=== PATIENT | female | born 1995 | race American Indian/Alaskan Native ===

== ENCOUNTER 2017-07-07 13:48 | Emergency (ER) | payer MEDICAID, OTHER ==
[2017-07-07 14:40] VITALS: BP 112/74
--- NOTE | 2017-07-07 18:08 | Emergency Department Report ---
ED Rash HPI - HPI Chief Complaint: Skin Rash Stated Complaint: RASH Time Seen by Provider: 07/07/17 17:52 Duration: 2 Days Location: Head, Neck, Chest, Back, Abdomen, Upper Extremities, Lower Extremities Suspected Cause: Medication Rash Symptoms: Yes Itching, No Facial Swelling, No Tongue/Oral Swelling, No Breathing Difficulties, No Choking Sensation, No Wheezing/Dyspnea, No Peeling, No Blistering, No Fever, No Lightheaded, No Malaise Severity: mild Other History: 22-year-old female no past medical history presents with complaint of itchy rash to the nape of her neck forearms legs abdomen and back. States it is itchy with slightly raised red bumps lines. Denies fever or chills denies nausea or vomiting denies any recent travel. Denies using any new cosmetics soaps or lotions denies having any new pets. Denies any food allergies. Patient states that she has not taken any medicine for the itching ED Review of Systems ROS: Stated complaint: RASH Other details as noted in HPI Constitutional: denies: chills, fever Eyes: denies: eye pain, eye discharge, vision change ENT: denies: ear pain, throat pain Respiratory: denies: cough, shortness of breath, wheezing Cardiovascular: denies: chest pain, palpitations Endocrine: no symptoms reported Gastrointestinal: denies: abdominal pain, nausea, diarrhea Genitourinary: denies: urgency, dysuria, discharge Musculoskeletal: denies: back pain, joint swelling, arthralgia Skin: as per HPI, rash. denies: lesions Neurological: denies: headache, weakness, paresthesias Psychiatric: denies: anxiety, depression Hematological/Lymphatic: denies: easy bleeding, easy bruising ED Past Medical Hx - Past Medical History Previous Medical History?: No - Social History Smoking Status: Current Every Day Smoker Substance Use Type: Marijuana - Medications Home Medications: Home Medications Medication Instructions Recorded Confirmed Last Taken Type Loratadine [Claritin] 10 mg PO DAILY #30 tablet 01/10/16 Unknown Rx Prednisone [predniSONE 5 mg (6-Day 5 mg PO .TAPER #1 tab.ds.pk 01/10/16 Unknown Rx Pack, 21 Tabs)] hydrOXYzine HCL [Atarax] 25 mg PO Q6HR PRN #30 tablet 01/10/16 Unknown Rx Clotrimazole 1% [Lotrimin 1%] 1 applicatio TP BID #1 tube 07/07/17 Unknown Rx Hydrocortisone 1% [Hydrocortisone 1 applicatio TP TID PRN #1 tube 07/07/17 Unknown Rx 1% CREAM] Hydroxyzine HCl 25 mg PO Q8H PRN #20 tablet 07/07/17 Unknown Rx Permethrin 5% [Acticin 5% CREAM] 1 applicatio TP ONCE #1 tube 07/07/17 Unknown Rx Rash Exam - Exam General: Vital signs noted. No distress. Alert and acting appropriately. HEENT: No Periorbital Edema, No Conjuctival Injection, No Chemosis, No Perioral Edema, No Tongue Edema, No Uvular Edema, No Compromised Airway, No Drooling Lungs: Yes Good Air Exchange (Normal Breath Sounds), No Wheezes, No Ronchi, No Stridor, No Cough, No Labored Respirations, No Retractions, No Use of Accessory Muscles, No Other Abnormal Lung Sounds Heart: Yes Regular, No Murmur Skin: Yes Maculopapular Rash (raised dry scaly plaques on back however there are what appear to be burrows and linear excoriations on extremities), Yes Excoriations (patient has some excoriations on the posterior nape of neck and on abdomen where she has been scratching) Other: Positive: Abdomen Normal, Neurologic Normal, Musculoskeletal Normal ED Course Vital Signs 07/07/17 14:36 Temperature 97.9 F Pulse Rate 89 Respiratory 16 Rate Blood Pressure 112/74 O2 Sat by Pulse 98 Oximetry ED Medical Decision Making - Medical Decision Making A/P: Scabies, tinea corporis 1-raised plaques on back and abdomen suggestive of tinea corporis will treat empirically with clotrimazole 2-excoriations and linear fashion along nape of neck creases of the elbows and knees suggestive of possible scabies infection will treat empirically with permethrin 3-primary care and dermatology 4- she has no signs of systemic illness no fever no chills no nausea no vomiting not in acute distress other than complaining of itching Critical care attestation.: If time is entered above; I have spent that time in minutes in the direct care of this critically ill patient, excluding procedure time. ED Disposition Clinical Impression: Scabies, Tinea corporis Disposition: DC-01 TO HOME OR SELFCARE Is pt being admited?: No Does the pt Need Aspirin: No Condition: Stable Instructions: Tinea Corporis (ED), Scabies (ED) Prescriptions: Clotrimazole 1% [Lotrimin 1%] 1 applicatio TP BID #1 tube Hydrocortisone 1% [Hydrocortisone 1% CREAM] 1 applicatio TP TID PRN #1 tube PRN Reason: Itching Hydroxyzine HCl 25 mg PO Q8H PRN #20 tablet PRN Reason: Itching Permethrin 5% [Acticin 5% CREAM] 1 applicatio TP ONCE #1 tube Referrals: [facility] [Provider Group] - 3-5 Days [facility] [Outside] - 3-5 Days Forms: Work/School Release Form(ED)
== END 2017-07-07 18:32 | disposition home or self-care (01) ==
LOC: ED 13:48
DX: B86 Scabies (principal); B35.4 Tinea corporis; F17.210 Nicotine dependence, cigarettes, uncomplicated; F12.10 Cannabis abuse, uncomplicated
CPT/HCPCS: 99282

== ENCOUNTER 2019-11-21 11:44 | Emergency (ER) | payer SELFPAY ==
--- NOTE | 2019-11-21 12:02 | Event Note ---
ED Screening Note ED Screening Note: states she has had productive cough for three weeks brown sputum fever decreased appetite no vomiting, no diarrhea +sob PMHx none no allergies to meds no hx of asthma +marijuana non drinker LNMP: 11/16/19 This initial assessment/diagnostic orders/clinical plan/treatment(s) is/are subject to change based on patients health status, clinical progression and re- assessment by fellow clinical providers in the ED. Further treatment and workup at subsequent clinical providers discretion. Patient/guardian urged not to elope from the ED as their condition may be serious if not clinically assessed and managed. Initial orders include: CXR consent for XR on chart
[2019-11-21 12:03] VITALS: BP 126/99
--- NOTE | 2019-11-21 13:35 | XRay Report ---
CHEST 2 VIEWS INDICATION / CLINICAL INFORMATION: productive cough. COMPARISON: None available. FINDINGS: SUPPORT DEVICES: None. HEART / MEDIASTINUM: No significant abnormality. LUNGS / PLEURA: No significant pulmonary or pleural abnormality. No pneumothorax. ADDITIONAL FINDINGS: Bilateral nipple piercings are present. IMPRESSION: 1. No acute findings. Signer Name: Spencer Steve MD Signed: 11/21/2019 1:31 PM Workstation Name: [id number]
--- NOTE | 2019-11-21 14:16 | Emergency Department Report ---
ED General Adult HPI - General Chief complaint: Upper Respiratory Infection Stated complaint: FLU SX Time Seen by Provider: 11/21/19 12:00 Source: patient Mode of arrival: Ambulatory Limitations: No Limitations - History of Present Illness Initial comments: Patient presents to the emergency department with a chief complaint of a cough 2 weeks. Patient states the cough is productive in nature and states she's also had a fever as well. Patient saw sure of any sick contacts. Severity scale (0 -10): 2 - Related Data Previous Rx's Medication Instructions Recorded Last Taken Type Loratadine (Nf) [Claritin] 10 mg PO DAILY #30 tablet 01/10/16 Unknown Rx Prednisone [predniSONE 5 mg (6-Day 5 mg PO .TAPER #1 tab.ds.pk 01/10/16 Unknown Rx Pack, 21 Tabs)] hydrOXYzine HCL [Atarax] 25 mg PO Q6HR PRN #30 tablet 01/10/16 Unknown Rx Clotrimazole 1% [Lotrimin 1%] 1 applicatio TP BID #1 tube 07/07/17 Unknown Rx Hydrocortisone 1% [Hydrocortisone 1 applicatio TP TID PRN #1 tube 07/07/17 Unknown Rx 1% CREAM] Permethrin 5% [Acticin 5% CREAM] 1 applicatio TP ONCE #1 tube 07/07/17 Unknown Rx hydrOXYzine HCL [Hydroxyzine HCl] 25 mg PO Q8H PRN #20 tablet 07/07/17 Unknown Rx ALBUTEROL Inhaler (OR & NICU) 2 puff IH Q4HR PRN #1 inhalation 11/21/19 Unknown Rx [ProAir HFA Inhaler] Benzonatate [Tessalon Perles] 100 mg PO Q8HR PRN #20 capsule 11/21/19 Unknown Rx guaiFENesin/CODEINE [Robitussin AC] 5 ml PO Q12HR PRN #180 oral.liqd 11/21/19 Unknown Rx predniSONE [Deltasone] 20 mg PO DAILY #15 tablet 11/21/19 Unknown Rx Allergies Allergy/AdvReac Type Severity Reaction Status Date / Time No Known Allergies Allergy Unverified 01/10/16 14:32 ED Review of Systems ROS: Stated complaint: FLU SX Other details as noted in HPI Constitutional: denies: chills, fever Eyes: denies: eye pain, eye discharge, vision change ENT: denies: ear pain, throat pain Respiratory: cough. denies: shortness of breath, wheezing Cardiovascular: denies: chest pain, palpitations Endocrine: no symptoms reported Gastrointestinal: denies: abdominal pain, nausea, diarrhea Genitourinary: denies: urgency, dysuria, discharge Musculoskeletal: denies: back pain, joint swelling, arthralgia Skin: denies: rash, lesions Neurological: denies: headache, weakness, paresthesias Psychiatric: denies: anxiety, depression Hematological/Lymphatic: denies: easy bleeding, easy bruising ED Past Medical Hx - Past Medical History Previous Medical History?: No - Surgical History Past Surgical History?: No - Social History Smoking Status: Current Some Day Smoker Substance Use Type: Marijuana - Medications Home Medications: Home Medications Medication Instructions Recorded Confirmed Last Taken Type Loratadine (Nf) [Claritin] 10 mg PO DAILY #30 tablet 01/10/16 Unknown Rx Prednisone [predniSONE 5 mg (6-Day 5 mg PO .TAPER #1 tab.ds.pk 01/10/16 Unknown Rx Pack, 21 Tabs)] hydrOXYzine HCL [Atarax] 25 mg PO Q6HR PRN #30 tablet 01/10/16 Unknown Rx Clotrimazole 1% [Lotrimin 1%] 1 applicatio TP BID #1 tube 07/07/17 Unknown Rx Hydrocortisone 1% [Hydrocortisone 1 applicatio TP TID PRN #1 tube 07/07/17 Unknown Rx 1% CREAM] Permethrin 5% [Acticin 5% CREAM] 1 applicatio TP ONCE #1 tube 07/07/17 Unknown Rx hydrOXYzine HCL [Hydroxyzine HCl] 25 mg PO Q8H PRN #20 tablet 07/07/17 Unknown Rx ALBUTEROL Inhaler (OR & NICU) 2 puff IH Q4HR PRN #1 inhalation 11/21/19 Unknown Rx [ProAir HFA Inhaler] Benzonatate [Tessalon Perles] 100 mg PO Q8HR PRN #20 capsule 11/21/19 Unknown Rx guaiFENesin/CODEINE [Robitussin AC] 5 ml PO Q12HR PRN #180 oral.liqd 11/21/19 Unknown Rx predniSONE [Deltasone] 20 mg PO DAILY #15 tablet 11/21/19 Unknown Rx ED Physical Exam - General Limitations: No Limitations General appearance: alert, in no apparent distress - Head Head exam: Present: atraumatic, normocephalic - Eye Eye exam: Present: normal appearance, PERRL, EOMI - ENT ENT exam: Present: mucous membranes moist - Neck Neck exam: Present: normal inspection - Respiratory Respiratory exam: Present: wheezes. Absent: respiratory distress - Cardiovascular Cardiovascular Exam: Present: regular rate, normal rhythm. Absent: systolic murmur, diastolic murmur, rubs, gallop - GI/Abdominal GI/Abdominal exam: Present: soft, normal bowel sounds. Absent: distended, tenderness - Extremities Exam Extremities exam: Present: normal inspection - Back Exam Back exam: Present: normal inspection - Neurological Exam Neurological exam: Present: alert, oriented X3, CN II-XII intact. Absent: motor sensory deficit - Psychiatric Psychiatric exam: Present: normal affect, normal mood - Skin Skin exam: Present: warm, dry, intact, normal color. Absent: rash ED Course Vital Signs 11/21/19 12:00 Temperature 98.6 F Pulse Rate 111 H Respiratory 16 Rate Blood Pressure 126/99 Blood Pressure 126/99 [Right] O2 Sat by Pulse 99 Oximetry ED Medical Decision Making - Radiology Data Radiology results: report reviewed - Medical Decision Making Patient advised to stop smoking marijuana Plan of care discussed with patient Critical care attestation.: If time is entered above; I have spent that time in minutes in the direct care of this critically ill patient, excluding procedure time. ED Disposition Clinical Impression: Bronchitis Disposition: DC-01 TO HOME OR SELFCARE Is pt being admited?: No Does the pt Need Aspirin: No Condition: Stable Instructions: Acute Bronchitis (ED) Additional Instructions: return if worse Referrals: [facility] [Provider Group] - 3-5 Days [facility] [Provider Group] - 3-5 Days Time of Disposition: 14:15
== END 2019-11-21 15:04 | disposition home or self-care (01) ==
LOC: ED 11:44
DX: J40 Bronchitis, not specified as acute or chronic (principal)
CPT/HCPCS: 71046; 99283

== ENCOUNTER 2020-10-31 17:02 | Emergency (ER) | payer SELFPAY ==
[2020-10-31 17:19] VITALS: BP 100/83
--- NOTE | 2020-10-31 17:48 | Emergency Department Report ---
Chief Complaint: Skin Rash Stated Complaint: RASH ALL OVER/ECZEMA Time Seen by Provider: 10/31/20 17:44 - HPI History of Present Illness: Patient is a 25-year-old female presents emergency room complaints of a diffuse rash that began 2 months ago. She states that occasionally she does have itching. She states that she has been using Aveeno and turmeric Carmichael butter [id number]. She does not have a primary care physician and has not seen anyone for this. She denies any known allergies at all. She denies any fever, vomiting, diarrhea, chills, facial swelling, difficulty swallowing, difficulty breathing. No past medical history. No allergies to medications. Currently on her menstrual cycle. Vitals are normal On exam: Non toxic appearing, no acute distress atraumatic, normocephalic normal appearance of the eyes, PERRL, EOMI, no periorbital edema or ecchymosis moist mucus membranes, no angioedema No respiratory distress, no accessory muscle use A&O x4, no focal neuro deficit skin is warm, dry, several small areas of hypopigmentation, there are also several areas diffusely of small erythematous macules with scaling around the border, no blistering, no skin denuding, no necrosis Examination appears most consistent with tinea corporis/tinea versicolor Advised patient to use Lotrimin [id number] Patient will be given a primary care doctor to follow-up with for further evaluation Discussed strict return precautions with patient Medical screen examination performed there is no threat to life or limb at this time - Exam Vital Signs: Vital Signs 10/31/20 17:18 Temperature 98.3 F Pulse Rate 64 Respiratory 20 Rate Blood Pressure 100/83 [Right] O2 Sat by Pulse 96 Oximetry MSE screening note: Focused history and physical exam performed. Due to findings the following was ordered: ED Disposition for MSE Clinical Impression: Tinea corporis Disposition: Z- MED SCREENING EXAM-LEFT Is pt being admited?: No Does the pt Need Aspirin: No Condition: Stable Instructions: Body Ringworm, Tinea Versicolor Additional Instructions: Please use Lotrimin [id number]. May also wash your body with a antifungal shampoo or Selsun Blue. Follow-up with a primary care doctor for reexamination and to see if you need further treatment. Return to emergency room for any new or worsening symptoms. walk in clinic: [facility] Address: [address] [place] [address], [place] [address] Referrals: TO SPARROW MD [Staff Physician] - 2-3 Days [facility] [Provider Group] - 2-3 Days [facility], [LAB/CONTRACT] - 2-3 Days Time of Disposition: 17:47 Print Language: [place]
== END 2020-10-31 17:58 | disposition left against medical advice (07) ==
LOC: ED 17:02
DX: R21 Rash and other nonspecific skin eruption (principal); Z53.21 Procedure and treatment not carried out due to patient leaving prior to being seen by health care provider

== ENCOUNTER 2021-06-30 16:15 | Emergency (ER) | payer SELFPAY ==
[2021-06-30 16:23] VITALS: BP 134/51
--- NOTE | 2021-06-30 18:49 | Emergency Department Report ---
ED Rash HPI - HPI Chief Complaint: Skin Rash Stated Complaint: RASH CORNERS OF MOUTH Time Seen by Provider: 06/30/21 18:42 Duration: 1 mth Rash Symptoms: Yes Itching, No Facial Swelling, No Tongue/Oral Swelling, No Breathing Difficulties, No Choking Sensation, No Wheezing/Dyspnea, No Peeling, No Blistering, No Fever, No Lightheaded, No Malaise, No Myalgias Severity: mild Other History: 26-year-old female presents to the ER today complaining of a rash to each corner of her mouth. Patient states that it started off small about a month ago and has since gotten a little bit bigger. She states that is very irritating and can also be itchy, dry and flaky. She has no known history of eczema, and thought it was related to eczema and so she has been using hydrocortisone cream but she states that it makes it worse. She denies any new lipsticks, facial products, foods, or any other new contacts. She denies any associated facial tongue or throat or lip swelling, she denies any coughing, chest pain, shortness of breath or wheezing. ED Review of Systems ROS: Stated complaint: RASH CORNERS OF MOUTH Other details as noted in HPI Comment: All other systems reviewed and negative Constitutional: denies: chills, fever Eyes: denies: eye pain, eye discharge, vision change ENT: denies: ear pain, throat pain, dental pain, hearing loss, epistaxis, congestion Respiratory: denies: cough, shortness of breath, SOB with exertion, SOB at rest, wheezing Gastrointestinal: denies: abdominal pain, nausea, diarrhea, constipation, hematemesis, hematochezia Genitourinary: denies: urgency, dysuria, discharge Skin: rash, pruritus. denies: lesions, change in color, change in hair/nails Neurological: denies: headache, weakness, numbness, paresthesias, confusion, abnormal gait, vertigo Psychiatric: denies: anxiety, depression, auditory hallucinations, visual hallucinations, homicidal thoughts, suicidal thoughts ED Past Medical Hx - Past Medical History Previous Medical History?: No - Surgical History Past Surgical History?: No - Social History Smoking Status: Never Smoker Substance Use Type: None - Medications Home Medications: Home Medications Medication Instructions Recorded Confirmed Last Taken Type Albuterol Mdi (or & Nicu Only) 2 puff IH Q4HR PRN #1 inhalation 11/21/19 Unknown Rx [ProAir HFA Inhaler] Nystatin Cream [Mycostatin Cream] 1 applic TP TID #30 gram 06/30/21 Unknown Rx Rash Exam - Exam General: Vital signs noted. No distress. Alert and acting appropriately. HEENT: No Periorbital Edema, No Conjuctival Injection, No Chemosis, No Perioral Edema, No Tongue Edema, No Uvular Edema, No Compromised Airway, No Drooling Lungs: Yes Good Air Exchange, No Wheezes, No Ronchi, No Stridor, No Cough, No Labored Respirations, No Retractions, No Use of Accessory Muscles, No Other Abnormal Lung Sounds Heart: Yes Regular, No Murmur Skin: Yes Maculopapular Rash (Mild, hyperpigmented, maculopapular rash slightly well-demarcated noted corner left and right aspects of the mouth), No Urticarial Rash, No Morbilliform rash, No Bulla(e), No Excoriations, No Weeping, No Tend erness, No Erythema, No Edema, No Encrustations Other: Positive: Abdomen Normal, Neurologic Normal, Musculoskeletal Normal ED Course Vital Signs 06/30/21 16:22 Temperature 98.9 F Pulse Rate 79 Respiratory 20 Rate Blood Pressure 134/51 [Right] O2 Sat by Pulse 98 Oximetry Critical care attestation.: If time is entered above; I have spent that time in minutes in the direct care of this critically ill patient, excluding procedure time. ED Disposition Clinical Impression: Angular cheilitis Disposition: TO HOME OR SELFCARE Is pt being admited?: No Does the pt Need Aspirin: No Condition: Stable Instructions: Skin Yeast Infection Additional Instructions: Use the nystatin cream as prescribed. Follow-up with a sheet rocker if not better. Return to the ER if your symptoms changes or worsens in any way Prescriptions: Nystatin Cream [Mycostatin Cream] 1 applic TP TID #30 gram Referrals: [facility] [Provider Group] - 3-5 Days [facility] [Other] - 3-5 Days Time of Disposition: 18:55
== END 2021-06-30 18:59 | disposition home or self-care (01) ==
LOC: ED 16:15
DX: K13.0 Diseases of lips (principal); Z79.899 Other long term (current) drug therapy
CPT/HCPCS: 99282